=== PATIENT | female | born 1950 | race Caucasian/White ===

== ENCOUNTER → 2024-04-12 | Outpatient (CLI) | payer MEDICARE, SELFPAY ==
--- NOTE | 2024-04-12 16:40 | RAD_ITS ---
ACR Level 3 findings have been noted. An addendum which confirms receipt of the report will follow. INDICATION: Severe AI PRE HEART CATH EXAMINATION/TECHNIQUE: X-RAY - XR Chest 2 Views COMPARISON: None. FINDINGS: LINES/DEVICES: None. LUNGS: No consolidation. Focal opacity medially at the right lung base, at the right cardiophrenic angle likely epicardial fat pad. No pneumothorax. MEDIASTINUM: Aorta is atherosclerotic and tortuous. CARDIAC SILHOUETTE: Not enlarged. BONES AND SOFT TISSUES: No acute abnormalities. Surgical clips overlying the right axilla/chest wall. RAD/Chest PA and Lateral IMPRESSION: No evidence of active intrathoracic disease. Opacity medially at the right lung base most likely prominent epicardial fat pad. Other etiologies or mass not entirely excluded with no prior studies for comparison. Consider CT chest if clinically indicated. Electronically Signed: Malinda Coreas MD at 8:06 EDT ,
[2024-04-12 18:00] LABS: Absolute Lymphocyte Count 1.66 X10^3/uL (0.83-4.51); Absolute Neutrophil Count 4.6 X10^3/uL (2.0-7.7); Basophil# 0.05 X10^3/uL; Basophil% 0.7 % (0-1); Eosinophils% 2.8 % (0-5); Hematocrit 43.2 % (37-47); Hemoglobin 14.3 g/dL (12.0-15.0); Lymphocyte # 1.66 X10^3/ul (0.83-4.51); Lymphocyte % 23.2 % (19-41); Mean Corp Hgb Conc 33.1 g/dL (32-36); Mean Corpuscular Hgb 30.7 pg (27.0-32.0); Mean Corpuscular Volume 92.7 fL (81-99); Mean Platelet Vol. 9.6 fl (6.2-12.0); Monocyte# 0.57 X10^3/uL; NRBC Flagged by Analyzer 0 % (0-5); Neutrophil # 4.58 X10^3/uL (2.7-7.7); Neutrophil % 63.9 % (47-70); Platelet Count 244 K/mm3 (150-450); RBC Distribution Width CV 13.1 % (11.6-14.6); RBC Distribution Width SD 44.3 fl (35.1-43.9); Red Blood Count 4.66 M/mm3 (4.2-5.4); White Blood Count 7.2 K/mm3 (4.4-11.0)
[2024-04-12 19:01] LABS: Partial Thromboplast Time 30.4 Seconds (24.1-36.2)
[2024-04-12 19:04] LABS: Anion Gap 7 (5-15); BUN 16 mg/dL (7-18); BUN/Creat Ratio 19.7 RATIO (10-20); Calcium,Total 9.8 mg/dL (8.5-10.1); Chloride 105 mmol/L (98-107); Creatinine, Serum 0.81 mg/dL (0.55-1.02); EST Glomerular Filtration Rate 73 mL/min (>60); Est Glom Filt Rate - Afr Amer 88 mL/min (>60); Glucose 85 mg/dL (74-106); Potassium 3.7 mmol/L (3.5-5.1); Sodium Level 137 mmol/L (136-145)
[2024-04-12 19:05] LABS: Prothrombin Time (Protime)PT. 12.7 SECONDS (11.7-14.9)
== END | disposition home or self-care (01) ==
PROVIDERS: PCP Internal Medicine; Referring Provider Internal Medicine Cardiovascular Disease; Visit Provider Internal Medicine Cardiovascular Disease
DX: I45.10 Unspecified right bundle-branch block (principal); I35.1 Nonrheumatic aortic (valve) insufficiency; R01.1 Cardiac murmur, unspecified
CPT/HCPCS: 36415; 71046; 80048; 85025; 85610; 85730

== ENCOUNTER 2024-04-25 06:54 | Day surgery (SDC) | payer MEDICARE, SELFPAY ==
[2024-04-22 09:00] VITALS: BMI 26.6
--- NOTE | 2024-04-25 08:37 | CL.D_ITS ---
Patient Name: NETTIE RIZO Study Date: 04/25/2024 Performing: Leander Vickers MD Ht: 65.5 inches 166.37 cm : 1950 Wt: 163.01 lbs 73.94 kg Age: 73 Gender: female BSA: 1.82 PROCEDURE(S) PERFORMED DC01-(62655)LHC/COR/LV DC11-(30333)AO ROOT ANGIO WITH HEART CATH CLINICAL PROFILE AND INDICATIONS Indications: Valvular Disease Heart Failure: None Stress/Imaging Stress/Image Study Performed: No CAD Presentations: Symptom unlikely to be ischemic. CONCLUSIONS Nonobstructive minimal coronary artery disease. Preserved ejection fraction. 2+ to atmost 3+ aortic regurgitation with a nondilated valve. RECOMMENDATIONS Recommend MARIZA for further aortic valve evaluation. DESCRIPTION OF PROCEDURE The patient arrived to the procedure lab. The risks and benefits of the procedure as well as a full description of our services here and current unavailability of surgical backup were fully explained to the patient and/or their significant other prior to the catheterization. The Timeout was completed, verifying the correct patient and procedure. The patient's procedural site was prepped and draped in the usual fashion. Local anesthetic was given subcutaneously to right radial region with Lidocaine 2%. Using a modified Seldinger technique, arterial access was obtained via the right radial artery, a 6Fr sheath was inserted. Left Coronary Artery selective angiography was performed in multiple views using a 5 Fr. 4.0 Malverne catheter. Right Coronary Artery selective angiography was then performed in multiple views using a 5 Fr. 4.0 Mal[place]ne catheter. Left Ventriculography was performed in MAHMOOD projection using a 5 Fr. Pigtail catheter. LV to AO pullback pressures were then recorded. Ascending (root) aorta selective angiography was then performed in single view. Ascending (root) aorta selective angiography was then performed in single view.The arterial sheath was pulled and a TR Band was applied for hemostasis. The arterial sheath was pulled and a TR Band was applied for hemostasis w/ 10ml air CORONARY ANGIOGRAPHY DOMINANCE: Right Dominant LEFT HEART ASSESSMENT Left Ventricular Ejection Fraction: by LV Gram 65 % Normal LV wall motion Normal Left Ventricular systolic function LEFT MAIN: Angiographically normal LEFT ANTERIOR DESCENDING ARTERY: Mild luminal irregularities CIRCUMFLEX ARTERY: Mild luminal irregularities RIGHT CORONARY ARTERY: Mild luminal irregularities less than 30% VALVE FINDINGS: Aortic Valve Insufficiency: Grade 2 AORTIC ROOT: Angiographically normal COMPLICATIONS No Complications PROCEDURE MEDICATIONS Versed 1 mg IV Fentanyl 50 mcg IV Versed 1 mg IV Oxygen: 2 L/min via nasal cannula Aspirin (325mg) 1 Tabs PO @ 04/25/2024 07:23:44 Heparin given IA 04/25/2024 08:02:12 Verapamil 2.5mg, Ntg 100mcgs, 3000 units of Heparin given IA 04/25/2024 08:02:12 SUMMARY OF HEMODYNAMIC DATA Time AIR REST ECG 07:22:42 Art 130/75 (99) 08:07:43 AO 155/76 (113) SA 08:14:30 LV 142/6, 19 08:18:30 LV 138/9, 21 08:18:38 LV 139/15, 35 08:19:16 LV 140/10, 21 08:19:25 LVp 143/10, 23 08:19:30 AOp 143/75 (105) 08:19:37 08:32:34 Signed By Leander Vickers MD On 04/25/2024 08:36:53 Leander Vickers MD
== END 2024-04-25 10:30 | disposition home or self-care (01) ==
PROVIDERS: PCP Internal Medicine; Referring Provider Internal Medicine Cardiovascular Disease; Visit Provider Internal Medicine Cardiovascular Disease
DX: I35.1 Nonrheumatic aortic (valve) insufficiency (principal); I25.10 Atherosclerotic heart disease of native coronary artery without angina pectoris; R06.09 Other forms of dyspnea; E78.00 Pure hypercholesterolemia, unspecified; I10 Essential (primary) hypertension; Z87.891 Personal history of nicotine dependence; Z79.899 Other long term (current) drug therapy
CPT/HCPCS: 93458; 93567; 99152; 99153; J7040; Q9967; C1769; C1894

== ENCOUNTER → 2024-04-27 | Outpatient (CLI) | payer MEDICARE, SELFPAY ==
--- NOTE | 2024-04-27 10:00 | ECHOTEE_ITS ---
Reason For Study: AORTIC REGURGITATION Medication MARIZA probe 6VT-D (SN [id number]) passed without difficulty. No complications were noted. Cetacaine Topical [place] given X3 orally. Versed 2 mg given slow IVP. Fentanyl 50 mcg given slow IVP. Performed a rapid injection of agitated mix of 9 cc saline and 1cc air to assess for atrial septal defect. Left Ventricle Normal LV size. Left ventricular systolic function is normal. The left ventricular ejection fraction is 55 %. No regional wall motion abnormalities noted. Right Ventricle Normal RV size. Normal systolic function. Atria Normal atrial septum. Bubble contrast study negative for right to left interatrial shunt. Normal left atrium. Normal right atrium. Mitral Valve Normal mitral valve. Mild (1+) mitral valve insufficiency. Tricuspid Valve Normal tricuspid valve. Aortic Valve Trisinus/trileaflet aortic valve. Moderate (2+) aortic valve insufficiency. There is no flow reversal noted. Pulmonic Valve Normal pulmonic valve. Vessels Normal aortic root. Normal arch. The pulmonary artery is normal size. Pulmonary venous flow normal. Pericardium No pericardial effusion. ECHO/Echo Transesophageal (MARIZA) Interpretation Summary Normal LV size. Left ventricular systolic function is normal. The left ventricular ejection fraction is 55 %. No regional wall motion abnormalities noted. Moderate (2+) aortic valve insufficiency. There is no flow reversal noted. Bubble contrast study negative for right to left interatrial shunt. Ordering Physician: Leander Vickers Referring Physician: Leander Vickers MD Performed By: Yola Villanueva RDCS and Student
== END | disposition home or self-care (01) ==
PROVIDERS: PCP Internal Medicine; Referring Provider Internal Medicine Cardiovascular Disease; Visit Provider Internal Medicine Cardiovascular Disease
DX: I35.1 Nonrheumatic aortic (valve) insufficiency (principal)
CPT/HCPCS: 93312; 93320; 93325; J7040; A4216

== ENCOUNTER → 2024-05-05 | Outpatient (CLI) | payer MEDICARE, SELFPAY ==
--- NOTE | 2024-05-05 14:48 | CT_ITS ---
STUDY: CTA CHEST REASON FOR EXAM: Female, 73 years old. AV Regurgitation possible TAVR -- Abnormal CXR possible pericardial cyst. History of breast cancer. Prior lumpectomy. RADIATION DOSAGE (If Supplied By Facility): CTDIvol = ( 6.78 ) mGy, DLP = ( 230.72 ) mGycm TECHNIQUE: The examination was performed with the intravenous administration of IV 100mL Isovue-370. Post-processing of the angiographic images was performed, with multiplanar reformation and 3D reconstruction. Individualized dose optimization techniques were used for this CT. COMPARISON: None. FINDINGS: Heterogeneous enlargement of the right lobe of the thyroid with multiple hypodensities. Scattered small hypodensities also seen in the left lobe of the thyroid and the isthmus. Correlation with ultrasound recommended. Normal enhancement of the main pulmonary artery and right and left pulmonary arteries. Normal enhancement of the bilateral peripheral pulmonary arteries. There is no demonstrated pulmonary embolism. Normal thoracic aorta and visualized great vessels. There is no demonstrated aortic dissection. Normal heart and pericardium. Prominent right pericardial fat pad. No significant coronary artery calcification is seen. Normal mediastinum. Normal hilar regions. Normal visualized trachea and bronchi. The lungs are well expanded. Mild linear scarring at the left lung base. 9 mm bulla in the right lower lobe. Normal pleura. Normal chest wall structures. There are degenerative changes of thoracic spine. Normal visualized upper abdomen. CT/CTA Chest W/WO Contrast IMPRESSION: Mild linear scarring at the left lung base. Prominent right pericardial fat pad. Electronically Signed: Chip Turner MD at 9:07 EDT ,
== END | disposition home or self-care (01) ==
LOC: CT 14:47
PROVIDERS: PCP Internal Medicine; Referring Provider Internal Medicine Cardiovascular Disease; Visit Provider Internal Medicine Cardiovascular Disease
DX: I35.1 Nonrheumatic aortic (valve) insufficiency (principal)
CPT/HCPCS: 71275; Q9967

== ENCOUNTER → 2024-05-20 | Outpatient (CLI) | payer MEDICARE, SELFPAY ==
--- NOTE | 2024-05-20 13:31 | US_ITS ---
STUDY: THYROID ULTRASOUND REASON FOR EXAM: Female, 73 years old. Neoplasm of uncertain behavior of thyroid gland TECHNIQUE: Ultrasound evaluation of the thyroid was performed with real-time and static -scale imaging. COMPARISON: None. FINDINGS: RIGHT LOBE: The right lobe of the thyroid gland measures 5.8 x 2.1 x 1.9 cm. There is a heterogeneous echotexture. Nodule 1:14 x 9 x 9 mm solid hypoechoic wider than tall smoothly marginated nodule and no echogenic foci (TR 4) stenosis in the medial right lobe and follow-up ultrasound is recommended in 1 year. Nodule 2:14 x 7 x 13 mm solid hypoechoic wider than tall smoothly marginated nodule with no echogenic foci (TR 4) in the anterior right lobe and follow-up ultrasound is recommended in 1 year. Nodule 3:12 x 12 x 10 mm mixed cystic and solid isoechoic wider than tall ill-defined margin nodule and no echogenic foci (TR 2) in the mid right lobe consistent with an adenoma. LEFT LOBE: The left lobe of the thyroid gland measures 5.1 x 2.2 x 1.6 cm. There is a heterogeneous echotexture. Nodule 4:9 x 5 x 8 mm mixed cystic and solid hypoechoic wider than tall smoothly marginated nodule and no echogenic foci (TR 3) in the lateral left lobe consistent with an adenoma. Nodule 5:9 x 3 x 7 mm solid hypoechoic wider than tall smoothly marginated nodule with no echogenic foci (TR 4) (in the medial left lobe consistent with an adenoma. ISTHMUS: The isthmus measures 2 mm thick. Nodule 6:11 x 6 x 15 mm solid hypoechoic wider than tall smoothly marginated nodule with no echogenic foci (TR 4) the right side of the isthmus and follow-up ultrasound is recommended one year.. The regional lymph nodes are normal. US/Thyroid IMPRESSION: Multinodular thyroid gland and follow-up ultrasound is recommended in 1 year. Electronically Signed: Ayush Grove MD at 16:30 EDT ,
== END | disposition home or self-care (01) ==
PROVIDERS: PCP Internal Medicine; Referring Provider Otolaryngology; Visit Provider Otolaryngology
DX: D44.0 Neoplasm of uncertain behavior of thyroid gland (principal)
CPT/HCPCS: 76536

== ENCOUNTER → 2024-11-07 | Outpatient (CLI) | payer MEDICARE, SELFPAY ==
--- NOTE | 2024-11-07 13:01 | ECHOD_ITS ---
Reason For Study: AORTIC INSUFFICIENCY Procedure This was a 2D Doppler, Color Flow transthoracic echocardiogram. Myocardial strain analysis was performed in this exam to aid in the assessment of cardiac function. Exam performed in department. Left Ventricle Normal LV size. Left ventricular systolic function is normal. The left ventricular ejection fraction is 55 %. Stage 1 diastolic dysfunction. No regional wall motion abnormalities noted. Right Ventricle Normal RV size. Normal systolic function. Mitral Valve Normal mitral valve. Mild (1+) eccentric mitral valve insufficiency. Tricuspid Valve Normal tricuspid valve. Aortic Valve Trisinus/trileaflet aortic valve. Mild (1+) eccentric aortic valve insufficiency. Pulmonic Valve Normal pulmonic valve. Great Vessels Normal aortic root. The pulmonary artery is normal size. Normal inferior vena cava. Pericardium/Pleural No pericardial effusion. MMode/2D Measurements & Calculations LVIDd: 5.0 cm IVSd: 1.1 cm LVOT diam: 2.1 cm LVIDs: 3.1 cm LVPWd: 0.91 cm LVOT area: 3.4 cm2 RVDd: 3.3 cm FS: 37.2 % asc Aorta Diam: 3.2 cm LAV(MOD-bp): 44.7 ml LVAd ap4: 25.8 cm2 LAV(MOD-bp) Indexed: 24.8 ml/m2 LVLd ap4: 7.1 cm LAV(MOD-sp2): 52.4 ml EDV(MOD-sp4): 77.4 ml LAV(MOD-sp4): 38.2 ml EDV(sp4-el): 79.8 ml LVAs ap4: 15.1 cm2 LVLs ap4: 6.0 cm ESV(MOD-sp4): 31.5 ml ESV(sp4-el): 32.5 ml EF(MOD-sp4): 59.3 % EF(sp4-el): 59.3 % SV(MOD-sp4): 45.9 ml SV(MOD-sp2): 42.6 ml LVAd ap2: 25.9 cm2 LVLd ap2: 7.5 cm SI(MOD-sp4): 25.4 ml/m2 SI(MOD-sp2): 23.6 ml/m2 EDV(MOD-sp2): 77.0 ml EDV(sp2-el): 76.2 ml LVAs ap2: 16.4 cm2 LVLs ap2: 6.8 cm ESV(MOD-sp2): 34.3 ml ESV(sp2-el): 33.7 ml EF(MOD-sp2): 55.4 % SV(sp4-el): 47.3 ml Ao sinus diam: 3.[address] Junction: 2.8 cm LA A4 area: 14.6 cm2 LA dimension(2D): 3.8 cm RA A4 area: 11.1 cm2 TAPSE: 1.7 cm Time Measurements MV dec time: 0.18 sec Doppler Measurements & Calculations MV E max malachi: 50.4 cm/sec Lat Peak E' Malachi: 9.0 cm/sec Med Peak E' Malachi: 7.2 cm/sec MV A max malachi: 69.3 cm/sec E/E' lat: 5.6 E/E' med: 7.0 MV E/A: 0.73 Ao V2 max: 153.0 cm/sec AI max malachi: 494.1 cm/sec MV dec slope: 283.0 cm/sec2 Ao max P.4 mmHg AI max P.8 mmHg Ao V2 mean: 101.8 cm/sec Ao mean P.7 mmHg AI dec slope: 285.4 cm/sec2 Ao V2 VTI: 31.7 cm AI P1/2t: 507.0 msec AV (velocity ratio): 0.86 TRISTA(I,D): 2.9 cm2 TRISTA(V,D): 2.8 cm2 LV V1 max: 125.2 cm/sec SV(LVOT): 93.2 ml PA V2 max: 65.2 cm/sec LV V1 max P.3 mmHg LV V1 mean P.3 mmHg LV V1 mean: 84.6 cm/sec LV V1 VTI: 27.3 cm ECHO/Echo Complete Interpretation Summary The left ventricular ejection fraction is 55 %. Normal LV size. Left ventricular systolic function is normal. Mild (1+) eccentric mitral valve insufficiency. Stage 1 diastolic dysfunction. The global longitudinal strain is normal. The global longitudinal strain = -16. 9 % (normal). Ordering Physician: Adam Villegas Referring Physician: Adam Villegas MD Performed By: Yola Villanueva RDCS
== END | disposition home or self-care (01) ==
PROVIDERS: PCP Internal Medicine; Referring Provider Internal Medicine Cardiovascular Disease; Visit Provider Internal Medicine Cardiovascular Disease
DX: I35.1 Nonrheumatic aortic (valve) insufficiency (principal)
CPT/HCPCS: 93306

== ENCOUNTER → 2025-06-15 | Outpatient (CLI) | payer MEDICARE, SELFPAY | END | disposition home or self-care (01) | PROVIDERS: PCP Internal Medicine; Referring Provider Nurse Practitioner Family; Visit Provider Nurse Practitioner Family | DX: G47.10 Hypersomnia, unspecified (principal) | CPT/HCPCS: 95810 ==

== ENCOUNTER → 2025-07-20 | Outpatient (CLI) | payer MEDICARE, SELFPAY | END | disposition home or self-care (01) | PROVIDERS: PCP Internal Medicine; Referring Provider Nurse Practitioner Family; Visit Provider Nurse Practitioner Family | DX: G47.33 Obstructive sleep apnea (adult) (pediatric) (principal); Z87.891 Personal history of nicotine dependence | CPT/HCPCS: 95811 ==